=== PATIENT | male | born 1970 | race Hispanic/Latino ===

== ENCOUNTER 2018-02-18 10:14 | Emergency (ER) | payer SELFPAY ==
[2018-02-18 11:31] LABS: BASOPHILS % (AUTO) 0.6 % (0.0-5.0); EOSINOPHILS % (AUTO) 0.3 % (0.0-8.0); HEMATOCRIT 34.5 % (42-54); LYMPHOCYTES % (AUTO) 13.8 % (21.0-51.0); MEAN CORPUSCULAR HEMOGLOBIN 30.5 pg (27.0-33.0); MEAN CORPUSCULAR HGB CONC 32.6 g/dL (32.0-36.0); MEAN CORPUSCULAR VOLUME 93.7 fL (79-99); MONOCYTES % (AUTO) 10.3 % (3.0-13.0); NUCLEATED RED BLOOD CELLS 0.1 % (0.0-0.19); PLATELET COUNT (AUTO) 266 K/uL (130-400); RED BLOOD CELL COUNT(AUTO) 3.68 MIL/uL (4.50-6.20); RED CELL DISTRIBUTION WIDTH 15.6 % (11.0-15.5); WHITE BLOOD COUNT (AUTO) 9.6 K/uL (4.8-10.8)
[2018-02-18 11:34] LABS: CREATININE 1.1 mg/dL (0.5-1.5)
[2018-02-18 11:39] LABS: ALBUMIN 2.4 g/dL (3.5-5.0); BILIRUBIN,TOTAL 1.2 mg/dL (0.2-1.0); TOTAL PROTEIN, SERUM 6.9 g/dL (6.0-8.3)
[2018-02-18 12:12] LABS: B-TYPE NATRIURETIC PEPTIDE 1660 pg/mL (0-100)
[2018-02-18] MEDS ORDERED: FUROSEMIDE 10 MG/ML 2ML VIAL ONE (12:55)
[2018-02-18] MEDS ORDERED: FUROSEMIDE 10 MG/ML 4ML VIAL ONE (12:55)
== END 2018-02-18 14:33 | disposition home or self-care (01) ==
LOC: EDH 10:14
DX: I50.20 Unspecified systolic (congestive) heart failure (principal); M54.5 Low back pain; E11.9 Type 2 diabetes mellitus without complications; Z87.891 Personal history of nicotine dependence
CPT/HCPCS: 36415; 71046; 80053; 83880; 84484; 85025; 93005; 96374; 99285; J1940 ×2